=== PATIENT | female | born 1970 | race Caucasian/White ===

== ENCOUNTER → 2017-08-27 09:29 | Outpatient (CLI) | payer OTHER, SELFPAY ==
--- NOTE | 2017-08-27 | DI.MRI.S_ITS ---
PROCEDURE: MR LUMBAR SPINE WO CON INDICATIONS: DEGENERATIVE DISC DISEASE TECHNIQUE: Noncontrast sagittal T1 spin echo and T2 fast echo, sagittal STIR, axial T1 and T2 fast spin echo through the lumbar spine. In cases with scoliosis, additional coronal T2 fast spin echo may be performed. COMPARISON: [facility], CT, ABDOMEN WITH CONTRAST, 02/26/2010, 13:37. FINDINGS: Image quality: Excellent. Alignment and Curvature: Minimal grade 1 anterolisthesis is seen at the L5-S1 level. Bone Marrow: Marrow is of normal overall signal. No acute vertebral body compression fractures. Scattered foci are seen, which are hyperintense on T1-weighted and T2-weighted imaging, which are most consistent with benign vertebral body hemangiomas. Spinal Cord: Conus medullaris terminates at the L1 level. Visualized cord demonstrates normal signal and size. Paraspinous Soft Tissues: No paravertebral masses. T12-L1: Normal appearance. L1-L2: Normal appearance. L2-L3: No significant abnormality is seen. L3-L4: Gyyp-em-akgtpwfs loss of disc height and disc signal are seen. Moderate disc bulge is seen at this level. Mild to moderate facet hypertrophy can be seen. No significant neural foraminal narrowing is seen. Veat-mp-cirxqmxp central canal narrowing can be seen at this level. L4-L5: The disc height and disk signal are well-preserved. Mild to moderate disc bulge is seen, which is eccentric to the left. Jesp-zu-zisuwxej facet hypertrophy is seen. There is mild to moderate left-sided and mild right-sided neural foraminal narrowing seen. No significant central canal narrowing can be seen at this level. L5-S1: Moderate to severe loss of disc height and disc signal are seen. Minimal grade 1 anterolisthesis is seen at this level. Mild generalized disc bulge is seen. Mild facet joint hypertrophy is seen. No significant neural foraminal or central canal narrowing are seen. 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 IMPRESSION: Lower lumbar spine degenerative changes are seen, which are more prominent than would be expected for a patient of this relatively young age. Dictated by: Erasmo Tang M.D. on 08/27/2017 at 10:22 Approved by: Erasmo Tang M.D. on 08/27/2017 at 10:27
== END ==
PROVIDERS: Visit Provider Family Medicine
DX: M51.36 Other intervertebral disc degeneration, lumbar region (principal)
CPT/HCPCS: 72148

== ENCOUNTER → 2020-08-30 10:52 | Outpatient (CLI) | payer OTHER, SELFPAY ==
[2020-08-30 19:24] LABS: Alanine Aminotransferase 59 IU/L (<35); Albumin 3.4 g/dL (3.5-5.0); Albumin Globulin Ratio 1.3 (1.0-2.8); Alkaline Phosphatase 68 U/L (38-126); Aspartate Aminotransferase 38 IU/L (14-36); BUN Creatinine Ratio 32.7 (6-22); Bilirubin Total 0.3 mg/dL (0.2-1.3); Blood Urea Nitrogen 16 mg/dL (7-17); Calcium 10.6 mg/dL (8.4-10.2); Carbon Dioxide 27 mmol/L (22-32); Chloride 103 mmol/L (98-107); Estimated Glomerular Filt Rate > 60.0 mL/min (>60); Globulin 2.7 g/dL (1.7-4.1); Glucose 95 mg/dL (70-100); HEMOLYSIS < 15 (0-50); Potassium 4.1 mmol/L (3.4-5.1); Sodium 137 mmol/L (137-145); Total Protein 6.1 g/dL (6.3-8.2)
[2020-08-30 19:41] LABS: Free T4, Direct Thyroxine 3.79 ng/dL (0.78-2.19)
[2020-08-30 19:57] LABS: Thyroid Stimulating Hormone < 0.015 uIU/mL (0.47-4.68)
[2020-09-01 08:43] LABS: Thyroid Peroxidase Antibodies 41 IU/mL (0-34)
[2020-09-01 19:06] LABS: Anti Thyroglobulin Antibody <1.0 IU/mL (0.0-0.9)
[2020-09-13 10:57] LABS: Thyroglobulin Level 88 ng/mL (.)
== END ==
PROVIDERS: PCP Family Medicine; Visit Provider Family Medicine
DX: E05.90 Thyrotoxicosis, unspecified without thyrotoxic crisis or storm (principal)
CPT/HCPCS: 80053; 84432; 84439; 84443; 84481; 86376; 86800

== ENCOUNTER → 2020-09-13 14:11 | Outpatient (CLI) | payer OTHER, SELFPAY ==
[2020-09-13 20:31] LABS: Free T4, Direct Thyroxine 5.46 ng/dL (0.78-2.19)
[2020-09-13 21:00] LABS: Thyroid Stimulating Hormone < 0.015 uIU/mL (0.47-4.68)
== END ==
PROVIDERS: PCP Family Medicine; Referring Provider Family Medicine; Visit Provider Family Medicine
DX: E05.90 Thyrotoxicosis, unspecified without thyrotoxic crisis or storm (principal)
CPT/HCPCS: 84439; 84443; 84481

== ENCOUNTER → 2020-09-24 09:21 | Outpatient (CLI) | payer OTHER, SELFPAY ==
--- NOTE | 2020-09-24 09:23 | DI.US.S_ITS ---
PROCEDURE: US ABDOMEN LIMITED INDICATIONS: RUQ PAIN TECHNIQUE: Real-time focused scanning was performed of the abdomen, with image documentation. COMPARISON: [facility], CT, ABDOMEN WITH CONTRAST, 02/26/2010, 13:37. FINDINGS: The liver is mildly prominent in size and demonstrates no focal lesions. No findings of gallstones or sludge are seen. The gallbladder wall is not thickened, measuring 3 mm or less. No specific pericholecystic fluid is seen. The sonographic Maldonado sign is negative. There is no biliary dilatation, the common bile duct measures 3 mm. No significant pancreatic abnormality is seen on these images. IMPRESSION: The gallbladder demonstrates a normal sonographic appearance. No biliary dilatation is seen. Dictated by: Erasmo Tang M.D. on 09/24/2020 at 11:50 Approved by: Erasmo Tang M.D. on 09/24/2020 at 11:51
== END ==
PROVIDERS: PCP Family Medicine; Referring Provider Family Medicine; Visit Provider Family Medicine
DX: R10.11 Right upper quadrant pain (principal)
CPT/HCPCS: 76705

== ENCOUNTER → 2020-10-01 13:44 | Outpatient (CLI) | payer OTHER, SELFPAY ==
[2020-10-01 14:24] LABS: Creatine Kinase < 20 U/L (30-135)
[2020-10-01 14:41] LABS: Free T4, Direct Thyroxine 3.98 ng/dL (0.78-2.19)
[2020-10-01 14:54] LABS: TSH w/ Reflex to FT4 < 0.02 uIU/mL (0.47-4.68)
== END ==
PROVIDERS: PCP Family Medicine; Referring Provider Family Medicine; Visit Provider Family Medicine
DX: E05.90 Thyrotoxicosis, unspecified without thyrotoxic crisis or storm (principal)
CPT/HCPCS: 36415; 82550; 84439; 84443; 84481

== ENCOUNTER → 2020-10-18 09:13 | Outpatient (CLI) | payer OTHER, SELFPAY ==
[2020-10-18 10:45] LABS: BUN Creatinine Ratio 36.7 (6-22); Blood Urea Nitrogen 22 mg/dL (7-17); Calcium 10.4 mg/dL (8.4-10.2); Carbon Dioxide 29 mmol/L (22-32); Chloride 105 mmol/L (98-107); Estimated Glomerular Filt Rate > 60.0 mL/min (>60); Glucose 104 mg/dL (70-100); HEMOLYSIS < 15 (0-50); Potassium 3.9 mmol/L (3.4-5.1); Sodium 139 mmol/L (137-145)
[2020-10-18 11:12] LABS: Thyroid Stimulating Hormone < 0.015 uIU/mL (0.47-4.68)
== END ==
PROVIDERS: PCP Family Medicine; Referring Provider Family Medicine; Visit Provider Family Medicine
DX: E05.90 Thyrotoxicosis, unspecified without thyrotoxic crisis or storm (principal)
CPT/HCPCS: 36415; 80048; 84439; 84443

== ENCOUNTER → 2020-10-25 10:21 | Outpatient (CLI) | payer OTHER, SELFPAY ==
--- NOTE | 2020-10-25 10:23 | DI.US.S_ITS ---
PROCEDURE: US THYROID INDICATIONS: HYPERTHYROIDISM TECHNIQUE: Real-time scanning was performed of the thyroid gland, with image documentation. COMPARISON: None. FINDINGS: Right: Thyroid lobe measures 3.0 x 3.3 x 6.8 cm, and is homogeneous in echotexture. Left: Thyroid lobe measures 2.3 x 2.9 x 5.5 cm, and is homogenous in echotexture. Isthmus: 8 mm thick. Nodule number: 1 Location: Right anterior and superior thyroid Size: 0.8 x 1.3 x 1.5 cm. Composition: Predominantly solid Echogenicity: Isoechoic and hypoechoic Shape: Wider than tall Margins: Punctate Echogenic foci: Punctate microcalcifications. Total points: 7 ACR TI-RADS category: Highly suspicious, FNA recommended Nodule number: 2 Location: Right posterior and superior thyroid Size: 0.5 x 0.6 x 0.8 cm. Composition: Predominantly cystic Echogenicity: Isoechoic and anechoic Shape: Wider than tall Margins: Smooth Echogenic foci: None Total points: 1 ACR TI-RADS category: Benign Nodule number: 3 Location: Left mid Size: 0.8 x 1.0 x 1.2 cm. Composition: Predominantly cystic Echogenicity: Isoechoic and anechoic Shape: Wider than tall Margins: Irregular Echogenic foci: None Total points: 3 ACR TI-RADS category: Mildly suspicious Nodule number: 4 Location: Left inferior Size: 0.6 x 0.7 x 1.0 cm. Composition: Solid Echogenicity: Hypoechoic Shape: Wider than tall Margins: Smooth Echogenic foci: Punctate microcalcifications Total points: 7 ACR TI-RADS category: Highly suspicious IMPRESSION: Two highly suspicious thyroid nodules. FNA recommended for both. Additional less suspicious thyroid nodules, for which follow-up is recommended. Dictated by: Gregory Tafoya M.D. on 10/25/2020 at 12:54 Approved by: Gregory Tafoya M.D. on 10/25/2020 at 13:01
== END ==
PROVIDERS: PCP Family Medicine; Referring Provider Registered Nurse; Visit Provider Registered Nurse
DX: E05.20 Thyrotoxicosis with toxic multinodular goiter without thyrotoxic crisis or storm (principal)
CPT/HCPCS: 76536

== ENCOUNTER → 2020-11-07 13:03 | Outpatient (CLI) | payer OTHER, SELFPAY ==
--- NOTE | 2020-11-07 | PATH_ITS ---
Note [facility] Accession Number: [id number] TESTS RESULT FLAG UNITS REF RANGE LAB Clinician Provided Cytology Information No. of containers..00 Previously Prepared Cytology Slide 35 Unknown Storage/container code(s) RIGHT SUPERIOR THYRO DIAGNOSIS: 01 RIGHT SUPERIOR THYROID NODULE #1, FINE NEEDLE ASPIRATION. NEGATIVE FOR MALIGNANT CELLS. ADEQUATE FOR EVALUATION. FOLLICULAR GROUPS ARE PRESENT. BENIGN FOLLICULAR (GOITEROUS) NODULE ([place] CATEGORY II), SEE COMMENT. COMMENT: MICROSCOPIC EXAMINATION REVEALS A CELLULAR ASPIRATE, COMPOSED OF COLLOID, FOLLICULAR GROUPS WITH HURTHLE-LIKE CHANGES, WITHOUT SIGNIFICANT CYTOLOGIC OR ARCHITECTURAL ATYPIA, AND BACKGROUND MACROPHAGES. THESE FINDINGS SUPPORT A BENIGN FOLLICULAR (GOITEROUS) NODULE. CORRELATION WITH CLINICAL AND RADIOGRAPHIC FINDINGS IS RECOMMENDED. ACCORDING TO THE [place] REPORTING SYSTEM FOR THYROID CYTOPATHOLOGY, THE RISK OF MALIGNANCY IN THE CATEGORY BENIGN-CATEGORY II IS 0-3%; THEREFORE RECOMMEND CONTINUED ULTRASOUND SURVEILLANCE WITH REPEAT FNA IF THE NODULE SIGNIFICANTLY INCREASES IN SIZE. Pathologist ICD10: 01 E04.1 01 Emilie Young MD, Pathologist NPI- [id number] Edward Josue, Office Assistance ([facility]) 01 30 CC, RED, CLEAR RECIEVED: IN CYTOLYT WITH 5 ALCOHOL FIXED AND 5 QUICK STAINED SLIDES ALSO 1 RNA VIAL WAS RECEIVED FOR FURTHER TESTING. /[facility] 11/08/2020 0655 [facility] FLAG LEGEND: L-Low Normal,H-High Normal,LL-Alert Low,HH-Alert High <-Panic Low,>-Panic High,A-Abnormal,AA-Critical Abnormal Performed at: 01 =Z [facility] [address], [place] [address] Lux Gold MD, Performed at: 01 [facility] Cytology [address], [place], [place] [id number] MD Lux Gold MD Phone: [phone]
--- NOTE | 2020-11-07 | PATH_ITS ---
Note [facility] Accession Number: [id number] TESTS RESULT FLAG UNITS REF RANGE LAB Clinician Provided Cytology Information No. of containers..00 Previously Prepared Cytology Slide 35 Unknown Storage/container code(s) LEFT INFERIOR THYROI DIAGNOSIS: 01 LEFT INFERIOR THYROID NODULE #4, FINE NEEDLE ASPIRATION. NEGATIVE FOR MALIGNANT CELLS. ADEQUATE FOR EVALUATION. FOLLICULAR GROUPS ARE PRESENT. BENIGN FOLLICULAR (GOITEROUS) NODULE (BETHESDA CATEGORY II), SEE COMMENT. COMMENT: MICROSCOPIC EXAMINATION REVEALS A MILDLY CELLULAR ASPIRATE, COMPOSED OF COLLOID, FOLLICULAR GROUPS WITH HURTHLE-LIKE CHANGES, WITHOUT SIGNIFICANT CYTOLOGIC OR ARCHITECTURAL ATYPIA, AND BACKGROUND MACROPHAGES. THESE FINDINGS SUPPORT A BENIGN FOLLICULAR (GOITEROUS) NODULE. CORRELATION WITH CLINICAL AND RADIOGRAPHIC FINDINGS IS RECOMMENDED. ACCORDING TO THE [place] REPORTING SYSTEM FOR THYROID CYTOPATHOLOGY, THE RISK OF MALIGNANCY IN THE CATEGORY BENIGN-CATEGORY II IS 0-3%; THEREFORE RECOMMEND CONTINUED ULTRASOUND SURVEILLANCE WITH REPEAT FNA IF THE NODULE SIGNIFICANTLY INCREASES IN SIZE. Pathologist ICD10: 01 E04.2 01 Emilie Young MD, Pathologist NPI- [id number] Edward Josue, Nurse Informaticist ([facility]) 01 30 CC, RED, CLEAR RECIEVED: IN CYTOLYT WITH 5 ALCOHOL FIXED AND 5 QUICK STAINED SLIDES ALSO 1 RNA VIAL WAS RECEIVED FOR FURTHER TESTING. /[facility] 11/08/2020 0656 [facility] FLAG LEGEND: L-Low Normal,H-High Normal,LL-Alert Low,HH-Alert High <-Panic Low,>-Panic High,A-Abnormal,AA-Critical Abnormal Performed at: 01 =Z [facility] [address], [place] [address] Lux Gold MD, Performed at: 01 [facility] [address], [place], [place] [id number] MD Lux Gold MD Phone: [phone]
--- NOTE | 2020-11-07 13:04 | DI.US.S_ITS ---
PROCEDURE: US FINE NEEDLE ASPIRATION INDICATIONS: Throid nodule TECHNIQUE: The indications, alternatives, benefits, risks, and complications of the procedure were explained to the patient. Written informed consent was obtained and placed in the chart. The thyroid region was examined sonographically and a site was chosen for ultrasound guided percutaneous sampling. The skin was prepared and draped in the usual fashion, and anesthetized with 1% lidocaine infiltrated from the skin down to the thyroid gland. Multiple passes were then performed, with contents emptied into an appropriate pathology specimen container. A bandage was applied to the area of access at completion of the study. COMPARISON: None. FINDINGS: Location(s) of lesion(s) sampled: Upper right thyroid lobe and lower left thyroid lobe [place]: 25 gauge hypodermic needles. Number of passes: 5 each Medications: 1% lidocaine for local anaesthesia. Complications: None. IMPRESSION: Successful ultrasound-guided thyroid nodule fine needle aspiration, with cytology results pending. Please see chart below for management recommendations based on cytology results. [facility] ReportingRecommendationsNon-diagnostic* Repeat US-guided FNA, with on-site cytology evaluation if possible. * Repeated non-diagnostic nodules without high suspicion US features: close observation vs surgical consult. * Consider surgery if nodule has high suspicion US features, grows >20% in 2 dimensions on followup, or patient has clinical risk factors for malignancy. Benign* If nodule has high suspicion US features: repeat US and FNA within 12 months. * If nodule has low to intermediate suspicion US features: repeat US at 12-24 months. If nodule grows (20% increase in at least 2 dimensions, with minimal increase of 2 mm or >50% change in volume), or development of new suspicious US features, then repeat FNA or continue followup. * If nodule has very low suspicion US features: followup US at >24 months. Atypia of undetermined significance, follicular lesion of undetermined significanceRepeat FNA, molecular testing, followup US, or surgical consult.Follicular neoplasm, suspicious for follicular neoplasmSurgical consult; also consider molecular testing. Suspicious for malignancySurgical consult.MalignantSurgical consult. Dictated by: Juan Sebastian M.D. on 11/07/2020 at 16:33 Approved by: Juan Sebastian M.D. on 11/07/2020 at 16:34
== END ==
PROVIDERS: PCP Family Medicine; Referring Provider Family Medicine; Visit Provider Family Medicine
DX: E04.2 Nontoxic multinodular goiter (principal); E05.90 Thyrotoxicosis, unspecified without thyrotoxic crisis or storm
CPT/HCPCS: 10005; 10006

== ENCOUNTER → 2020-11-20 12:20 | Outpatient (CLI) | payer OTHER, SELFPAY ==
[2020-11-20 20:00] LABS: Free T4, Direct Thyroxine 1.81 ng/dL (0.78-2.19)
[2020-11-20 20:17] LABS: Thyroid Stimulating Hormone < 0.015 uIU/mL (0.47-4.68)
== END ==
PROVIDERS: PCP Family Medicine; Referring Provider Family Medicine; Visit Provider Family Medicine
DX: E05.90 Thyrotoxicosis, unspecified without thyrotoxic crisis or storm (principal)
CPT/HCPCS: 84439; 84443

== ENCOUNTER → 2024-09-28 11:56 | Outpatient (CLI) | payer BC, SELFPAY | PROVIDERS: PCP Family Medicine; Visit Provider Physician Assistant | DX: Z78.9 Other specified health status (principal) | CPT/HCPCS: 86658 ==